=== PATIENT | female | born 1980 | race Caucasian/White ===

== ENCOUNTER 2022-10-23 15:42 | Emergency (ER) | payer OTHER, SELFPAY ==
--- NOTE | 2022-10-23 15:47 | ED.URI ---
HPI - URI/Sore Throat General Chief Complaint: Ear Stated Complaint: ears itchy/clogged Time Seen by Provider: 10/23/22 15:47 Source: patient Mode of arrival: ambulatory Limitations: no limitations History of Present Illness HPI Narrative: Patient is a 42-year-old female who presents with 4 days of ear pain, ear pressure and muffled hearing. Patient has history of sinus infections and has had intermittent sinus headaches for months. Patient has been taking Mucinex for symptoms with mild to no relief. Denies any fever, chills, nausea, vomiting, diarrhea, congestion, sore throat, cough. Related Data Home Medications Medication Instructions Recorded Confirmed spironolactone 100 mg tablet 100 mg DAILY 10/23/22 10/23/22 Allergies Allergy/AdvReac Type Severity Reaction Status Date / Time morphine AdvReac Unknown Verified 10/23/22 16:05 tramadol AdvReac Nausea and Verified 10/23/22 16:05 Vomiting Review of Systems Review of Systems: All systems reviewed & are unremarkable except as noted in HPI and below Constitutional: Constitutional: Denies body ache(s), Denies chills, Denies fatigue, Denies fever(s), Denies headache(s), Denies malaise and Denies weakness Eyes: Eyes: Denies blurry vision, Denies itchy eyes and Denies loss of vision ENT: Reports otalgia, Denies headache(s), Reports hearing loss, Denies nasal congestion, Denies sinus pain and Denies sore throat Cardiovascular: Cardiovascular: Denies chest pain, Denies irregular heart rhythm and Denies dyspnea Respiratory: Respiratory: Denies cough and Denies dyspnea Gastrointestinal: Gastrointestinal: Denies abdominal pain, Denies diarrhea, Denies nausea and Denies vomiting Musculoskeletal: Musculoskeletal: Denies back pain, Denies myalgias and Denies arthralgias Integumentary/Breasts: Skin/Breast: Denies pruritus and Denies rash Neurologic: Denies headache(s), Denies loss of vision and Denies weakness Psychiatric: Psychiatric: Reports no additional psychiatric complaints Endocrine: Endocrine: Denies fatigue Allergic/Immunologic: Allergic/Immunologic: Denies itchy eyes PMFSH Comments At time of signature, agree with nursing past medical, surgical, social and family history. There is no relevant family history pertinent to the presenting complaint. Exam Const: General: cooperative, healthy appearing, comfortable, no acute distress and well nourished Nutritional Appearance: well nourished Orientation/consciousness: patient oriented x3 Limitations: no limitations HENMT: Head: normal to inspection, normocephalic and atraumatic Ears: hearing grossly normal bilaterally, external ears normal, TM's normal bilaterally, EAC's normal and no periauricular adenopathy Face/Nose/Sinus: Normal external nose present, Normal nasal mucous membranes and turbinates present, normal facial exam, sinuses nontender and face symmetric Face and sinus: normal facial exam, sinuses nontender and face symmetric Mouth: Yes Normal oral and palatal mucosa present, Yes lip normal, Yes tongue normal, Yes Normal salivary glands and ducts present, Yes oropharynx normal and Yes moist mucous membranes Teeth and gingiva: dentition normal Throat: posterior oropharynx normal, uvula midline and abnormal tonsil bilateral erythema and hypertrophy 2+ Eyes: General: appearance normal, both eyes and all related structures Alignment and Position: alignment normal and position normal Periorbital: periorbital findings normal Eyelids: eyelids normal Pupils: Equal, round and reactive pupils present Neck: Neck: normal visual inspection, full ROM, no lymphadenopathy and supple Chest: Chest palpation & inspection: normal inspection of the chest and normal palpation of entire chest wall Resp: Effort & Inspection: normal respiratory effort and able to speak in complete sentences Auscultation: clear to auscultation bilaterally, no crackles, no rales, no rhonchi and no wheezes Cardio: Rate: regular rate
[2022-10-23 16:10] VITALS: BP 119/92; PULSE 104; RESP 16; TEMP 36.4; O2SAT 100
== END 2022-10-23 17:08 | disposition home or self-care (01) ==
PROVIDERS: Emergency Provider Nurse Practitioner Family
DX: J30.2 Other seasonal allergic rhinitis (principal); H93.8X3 Other specified disorders of ear, bilateral
CPT/HCPCS: 87081; 87880; 99213; G0463

== ENCOUNTER → 2023-03-12 13:48 | Outpatient (CLI) | payer OTHER, SELFPAY ==
--- NOTE | ~2023-03-12 | XR_ITS ---
XR hand BI arthritis min 3V DATE: 03/12/2023 15:17 INDICATION: Right hand pain TECHNIQUE: 3 views COMPARISON: None FINDINGS: No fracture or dislocation, periosteal reaction or bone destruction, erosive change or tony drocalcinosis. IMPRESSION: No significant abnormality Reviewed, dictated and finalized at location B. IMPRESSION: No significant abnormality
--- NOTE | ~2023-03-12 | XR_ITS ---
XR lumbar spine 2-3V DATE: 03/12/2023 15:17 INDICATION: Back pain TECHNIQUE: AP, lateral, coned lateral lumbosacral views COMPARISON: None FINDINGS: No fracture or bone destruction is evident. Included lower thoracic and lumbar pedicles are intact. Mild degenerative disc disease at L3-4 and L4-5 and severe degenerative disc disease at L5-S1. The sacroiliac joints are intact. IMPRESSION: Multilevel degenerative disc disease, severe at L5-S1 Reviewed, dictated and finalized at location B.
--- NOTE | ~2023-03-12 | XR_ITS ---
XR foot RT min 3V DATE: 03/12/2023 15:17 INDICATION: Right foot pain TECHNIQUE: 4 views COMPARISON: None FINDINGS: No fracture or dislocation, periosteal reaction or bone destruction. IMPRESSION: Negative Reviewed, dictated and finalized at location B. IMPRESSION: Negative
--- NOTE | ~2023-03-12 | XR_ITS ---
XR foot LT min 3V DATE: 03/12/2023 15:17 INDICATION: Left foot pain TECHNIQUE: 4 views COMPARISON: None FINDINGS: No fracture or dislocation, periosteal reaction or bone destruction. IMPRESSION: Negative Reviewed, dictated and finalized at location B. IMPRESSION: Negative
--- NOTE | ~2023-03-12 | XR_ITS ---
XR thoracic spine 2V DATE: 03/12/2023 15:17 INDICATION: Back pain TECHNIQUE: AP, lateral, swimmer views COMPARISON: None FINDINGS: Mild dextroscoliosis of the thoracolumbar spine. No fracture or dislocation or bone destruc tion. No paraspinal soft tissue thickening. Status post cholecystectomy. IMPRESSION: Mild thoracolumbar dextroscoliosis Reviewed, dictated and finalized at location B.
--- NOTE | ~2023-03-12 | XR_ITS ---
XR sacroiliac joints min 3V DATE: 03/12/2023 15:17 INDICATION: Pain TECHNIQUE: AP and bilateral oblique views of the sacroiliac joints COMPARISON: None FINDINGS: The sacroiliac joints are normal, without evidence of erosive change, fracture, dislocation or ankylosis. Moderately severe degenerative disc disease at L5-S1. IMPRESSION: Normal sacroiliac joints Moderately severe degenerative disc disease at L5-S1 Reviewed, dictated and finalized at Location A. Reviewed, dictated and finalized at location B.
--- NOTE | ~2023-03-12 | XR_ITS ---
XR_CERV2-3V_CR 03/12/2023 15:17 Indication: Neck pain Procedure: 3 view cervical spine Comparison: No prior studies for comparison. Findings: Vertebral body heights are maintained. Mild disc narrowing at C5-6. No fracture, subluxatio n or traumatic malalignment. No prevertebral soft tissue swelling. Lateral masses are normally aligne d. Odontoid process is normal. Impression: 1: Mild disc narrowing at C5-6. Reviewed, dictated and finalized at location A. Impression: 1: Mild disc narrowing at C5-6.
--- NOTE | ~2023-03-12 | XR_ITS ---
XR chest 2V DATE: 03/12/2023 15:17 INDICATION: Pain TECHNIQUE: 2 views COMPARISON: None FINDINGS: Normal heart size. No hilar or mediastinal enlargement. No pulmonary infiltrate or consolid ation, pleural effusion or pulmonary vascular congestion or pneumothorax. Surgical clips overlie the upper abdomen on the lateral view, likely due to cholecystectomy. IMPRESSION: No active cardiopulmonary disease Reviewed, dictated and finalized at location B.
== END ==
PROVIDERS: PCP Physician Assistant Medical; Visit Provider Physician Assistant Medical
DX: M25.50 Pain in unspecified joint (principal); M54.2 Cervicalgia; Z79.899 Other long term (current) drug therapy; M51.37 Other intervertebral disc degeneration, lumbosacral region
CPT/HCPCS: 71046; 72040; 72070; 72100; 72202; 73130; 73630

== ENCOUNTER 2023-04-13 13:33 | Outpatient (CLI) | payer OTHER, SELFPAY ==
--- NOTE | 2023-04-13 14:45 | NEURO_ITS ---
Impression: # Complains of upper thoracic and left upper extremity discomfort. # Normal Nerve Conduction Study with no Carpal Tunnel Syndrome. # Normal needle/EMG exam. # Clinical correlation recommended. Nerve Conduction Studies Anti Sensory Summary Table Stim Site NR Peak (ms) P-T Amp (?V) Site1 Site2 Delta-P (ms) Dist (cm) Eder (m/s) Left Median Anti Sensory (2-3nd Digit) Wrist 2.6 95.8 Wrist 2-3nd Digit 2.6 14.0 54 Wrist 2.6 89.0 Wrist 2-3nd Digit 2.6 14.0 54 Right Median Anti Sensory (2-3nd Digit) Wrist 2.5 84.7 Wrist 2-3nd Digit 2.5 14.0 56 Wrist 2.7 92.3 Wrist 2-3nd Digit 2.5 14.0 56 Left Radial Anti Sensory (Base 1st Digit) Wrist 1.9 38.7 Wrist Base 1st Digit 1.9 0.0 Right Radial Anti Sensory (Base 1st Digit) Wrist 2.0 31.9 Wrist Base 1st Digit 2.0 0.0 Left Ulnar Anti Sensory (5th Digit) Wrist 2.3 71.5 Wrist 5th Digit 2.3 14.0 61 Right Ulnar Anti Sensory (5th Digit) Wrist 2.2 51.5 Wrist 5th Digit 2.2 14.0 64 Motor Summary Table Stim Site NR Onset (ms) O-P Amp (mV) Site1 Site2 Delta-0 (ms) Dist (cm) Eder (m/s) Left Median Motor (Abd Poll Brev) Wrist 2.7 7.8 Elbow Wrist 4.3 26.0 60 Elbow 7.0 3.8 Right Median Motor (Abd Poll Brev) Wrist 2.9 3.8 Elbow Wrist 4.2 25.0 60 Elbow 7.1 4.5 Left Ulnar Motor (Abd Dig Minimi) Wrist 2.3 5.9 A Elbow Wrist 4.5 27.0 60 A Elbow 6.8 3.7 Right Ulnar Motor (Abd Dig Minimi) Wrist 2.0 6.5 A Elbow Wrist 4.3 25.0 58 A Elbow 6.3 4.9 F Wave Studies NR F-Lat (ms) L-R F-Lat (ms) Left Median (Mrkrs) (Abd Poll Brev) 24.53 0.47 Right Median (Mrkrs) (Abd Poll Brev) 25.00 0.47 Left Ulnar (Mrkrs) (Abd Dig Min) 25.16 1.43 Right Ulnar (Mrkrs) (Abd Dig Min) 26.59 1.43 EMG Side Muscle Nerve Root Ins Act Fibs Amp Dur Recrt Comment Right 1stDorInt Ulnar C8-T1 Nml Nml Nml Nml Nml Right Ext Indicis Radial (Post Int) C7-8 Nml Nml Nml Nml Nml Right Ext Digitorum Radial (Post Int) C7-8 Nml Nml Nml Nml Nml Right BrachioRad Radial C5-6 Nml Nml Nml Nml Nml Right PronatorTeres Median C6-7 Nml Nml Nml Nml Nml Right Abd Poll Brev Median C8-T1 Nml Nml Nml Nml Nml Left 1stDorInt Ulnar C8-T1 Nml Nml Nml Nml Nml Left Ext Indicis Radial (Post Int) C7-8 Nml Nml Nml Nml Nml Left Ext Digitorum Radial (Post Int) C7-8 Nml Nml Nml Nml Nml Left BrachioRad Radial C5-6 Nml Nml Nml Nml Nml Left PronatorTeres Median C6-7 Nml Nml Nml Nml Nml Left Abd Poll Brev Median C8-T1 Nml Nml Nml Nml Nml MTDD
== END 2023-04-13 13:34 | disposition home or self-care (01) ==
LOC: ANHNEURO 13:34
PROVIDERS: PCP Physician Assistant Medical; Visit Provider Internal Medicine
DX: M79.2 Neuralgia and neuritis, unspecified (principal)
CPT/HCPCS: 95886; 95911

== ENCOUNTER 2023-04-27 09:27 | Emergency (ER) | payer OTHER, SELFPAY ==
[2023-04-27 09:34] VITALS: BP 135/64; PULSE 92; RESP 16; TEMP 36.6; O2SAT 100
--- NOTE | 2023-04-27 09:35 | ED.URI ---
HPI - URI/Sore Throat General Chief Complaint: Upper Respiratory Infection Stated Complaint: Sore Throat Time Seen by Provider: 04/27/23 09:37 Source: patient, RN notes reviewed and old records reviewed Mode of arrival: ambulatory Limitations: no limitations History of Present Illness HPI Narrative: 43-year-old female presents to the [facility] with complaints of a sore throat. Sore throat started yesterday Patient states that she is concerned that she has something, mother has a history of a liver transplant. Discussed with patient that all viruses including the common cold can be bad for people who were taking transplant or anti rejection medications. Onset (ago): day(s) (1) Treatments prior to arrival: none Related Data Home Medications Medication Instructions Recorded Confirmed spironolactone 100 mg tablet 100 mg DAILY 10/23/22 10/23/22 Allergies Allergy/AdvReac Type Severity Reaction Status Date / Time morphine AdvReac Unknown Verified 10/23/22 16:05 tramadol AdvReac Nausea and Verified 10/23/22 16:05 Vomiting Review of Systems Review of Systems: All systems reviewed & are unremarkable except as noted in HPI and below Constitutional: Constitutional: Reports no additional constitutional complaints Eyes: Eyes: Reports no additional eye complaints ENT: Reports as per HPI and Reports sore throat Cardiovascular: Cardiovascular: Reports no additional cardiovascular complaints, Denies chest pain and Denies dyspnea Respiratory: Respiratory: Reports as per HPI, Denies chest congestion, Reports cough and Denies dyspnea Gastrointestinal: Gastrointestinal: Reports no additional gastrointestinal complaints, Denies abdominal pain, Denies nausea and Denies vomiting Musculoskeletal: Musculoskeletal: Reports no additional musculoskeletal complaints Integumentary/Breasts: Skin/Breast: Reports system reviewed and no additional complaints, except as docu Neurologic: Reports system reviewed and no additional complaints, except as documented Psychiatric: Psychiatric: Reports no additional psychiatric complaints Allergic/Immunologic: Allergic/Immunologic: Reports no additional allergic/immunologic complaints PMFSH Comments At the time of my signature, I reviewed and agree with the nursing past medical, surgical, social, and family history. There is no relevant family history pertinent to the patient complaint. Exam Const: General: cooperative, healthy appearing, comfortable, no acute distress, well developed, alert and well nourished Nutritional Appearance: well nourished Orientation/consciousness: patient oriented x3 Limitations: no limitations HENMT: Head: normal to inspection Ears: hearing grossly normal bilaterally, external ears normal, TM's normal bilaterally, EAC's normal, mastoids normal and no periauricular adenopathy Face/Nose/Sinus: Normal external nose present, Normal nares present, Normal nasal mucous membranes and turbinates present, No nasal discharge present, normal facial exam and face symmetric Face and sinus: normal facial exam and face symmetric Mouth: Yes Normal oral and palatal mucosa present, Yes lip normal and Yes moist mucous membranes Throat: posterior oropharynx normal, tonsils normal, uvula midline and no uvular edema Eyes: General: appearance normal, both eyes and all related structures Alignment and Position: alignment normal Periorbital: periorbital findings normal Pupils: Equal, round and reactive pupils present EOM: EOMs intact bilaterally Neck: Neck: normal visual inspection, full ROM, no lymphadenopathy and no meningeal signs Chest: Chest palpation & inspection: normal inspection of the chest Resp: Effort & Inspection: normal respiratory effort and able to speak in complete sentences Auscultation: clear to auscultation bilaterally, no crackles, no rales, no rhonchi and no wheezes Cardio: Rate: regular rate Rhythm: regular rhythm Back/Spine/Pelvis: Cervical Spine: cervical
== END 2023-04-27 10:05 | disposition home or self-care (01) ==
PROVIDERS: Emergency Provider Nurse Practitioner
DX: J06.9 Acute upper respiratory infection, unspecified (principal); Z20.822 Contact with and (suspected) exposure to COVID-19
CPT/HCPCS: 87081; 87426; 87804; 87880; 99213; C9803; G0463

== ENCOUNTER 2025-02-23 15:07 | Outpatient (CLI) | payer OTHER, SELFPAY ==
--- NOTE | ~2025-02-23 | XR_ITS ---
EXAMINATION: XR chest 2V, 02/23/2025 15:30 CDT HISTORY: COUGH COMPARISON: No comparisons available. Technique: 2 views obtained. Findings: The lungs are clear, no effusion. No pneumothorax. Heart is normal size. Mediastinal and hilar contours are within normal limits. Bony thorax no acute abnormality. Impression: No acute cardiopulmonary abnormality. Reviewed, dictated and finalized at location P. Impression: No acute cardiopulmonary abnormality.
== END 2025-02-23 15:08 | disposition home or self-care (01) ==
LOC: MICIMG 15:12
PROVIDERS: PCP Physician Assistant; Visit Provider Physician Assistant
DX: R05.1 Acute cough (principal)
CPT/HCPCS: 71046